=== PATIENT | female | born 1980 | race Caucasian/White ===

== ENCOUNTER 2019-07-23 03:39 | Emergency (ER) | payer OTHER, SELFPAY ==
[2019-07-23 03:45] VITALS: BP 136/69; PULSE 84; RESP 18; TEMP 36.6; O2SAT 99
--- NOTE | 2019-07-23 04:02 | ED.ABDPAIN ---
HPI - Abdominal Pain General Chief Complaint: Abdominal Pain Stated Complaint: abd pain and nausea Time Seen by Provider: 07/23/19 03:53 Source: patient Mode of arrival: Ambulatory Limitations: no limitations History of Present Illness HPI narrative: 39-year-old woman with the history of Crohn's disease currently on Remicade and followed by GI specialist at the [facility] presents with a week and a half of nausea with abdominal pain for periumbilical but involving the entire abdomen coming in waves and getting progressively worse over the last week and half. She states that she has not actually had any emesis has not had a significant change to her bowel movements and is still passing gas. She does have a history of an intra-abdominal abscess as well as a partial small-bowel obstruction. No fevers or chills. She presents today because the nausea is getting progressively worse despite taking Zofran after work this evening. She has shifted to a later work shift and initially she thought that was the problem. She has an IUD in place and recently had a negative test as well Related Data Allergies Allergy/AdvReac Type Severity Reaction Status Date / Time No Known Drug Allergies Allergy Verified 07/23/19 04:41 Review of Systems Review of Systems Narrative: Denies ? fever ? cough ? cold ? chills ? chest pain ? dyspnea ? orthopnea ? wheezing ? skin changes ? rashes Patient History Medical History Crohn's disease (Acute) Intra-abdominal abscess (Acute) IUD (intrauterine device) in place (Acute) Surgical History (Updated 07/23/19 @ 04:05 by Jamee Mendoza MD) Hx of appendectomy (Acute) Social History Smoking Status: Never smoker Smoking Status: Never smoker alcohol intake frequency: a few times a month Substance Use Type: does not use Exam Narrative Exam Narrative: General: Healthy appearing, in no acute distress. Able to give a complete and coherent history. Well-nourished well-developed HEENT: Moist mucous membranes, normal sclera with reactive pupils, Neck: No JVD, supple Respiratory: Lungs are clear to auscultation, no wheezing no rales no rhonchi. Full and symmetrical air movement Cardiac: Regular rate and rhythm no murmurs no bruits Abdomen: Soft, moderately tender through the entire abdomen without rebound or guarding, question of a mass or increase fullness in the right lower quadrant verses deeper guarding. Hypoactive bowel tones with some rushes and tinkles appreciated centrally. No flank pain Skin: Warm and dry, no rashes Neurologic: Grossly neurologically intact with no obvious asymmetries or abnormalities Extremities: No trauma, well perfused Psych: Cooperative, appropriate insight and affect Initial Vital Signs Initial Vital Signs: Vital Signs Temperature 97.9 F 07/23/19 03:45 Pulse Rate 84 07/23/19 03:45 Respiratory Rate 18 07/23/19 03:45 Blood Pressure 136/69 07/23/19 03:45 Pulse Oximetry 99 07/23/19 03:45 Course Orders Ordered: ED Orders 07/23/19 03:50 Complete Blood Count AUTO DIFF Stat Comprehensive Metabolic Panel Stat Lipase Stat 07/23/19 04:07 XR abdomen 1V Stat 07/23/19 04:26 Urinalysis and Microscopic Stat Sodium Chloride (Normal Saline 0.9%) 1,000 mls @ 1,000 mls/hr IV BOLUS ONE Stop: 07/23/19 05:05 Last Admin: 07/23/19 04:21 Dose: 1,000 mls/hr Documented by: CHRISTOS Discontinued Medications Ketorolac Tromethamine (Toradol) 15 mg IV NOW ONE Stop: 07/23/19 04:07 Last Admin: 07/23/19 04:20 Dose: 15 mg Documented by: CHRISTOS Magnesium Citrate (Magnesium Citrate) 150 ml PO NOW ONE Stop: 07/23/19 04:39 Ondansetron HCl (Zofran) 4 mg IV NOW ONE Stop: 07/23/19 04:07 Last Admin: 07/23/19 04:21 Dose: 4 mg Documented by: CHRISTOS Vital Signs Vital signs: Vital Signs - 8 hr 07/23/19 03:45 Temperature 97.9 F Pulse Rate 84 Respiratory Rate 18 Blood Pressure 136/69 Pulse Oximetry 99 MDM - Abdominal Pain Medical Records Attestation: I reviewed the patient's medical records. Lab Data Attestation: I reviewed the patient's lab results. Result diagrams: 07/23/19 03:50 07/23/19 03:50 Labs: Lab Results 07/23/19 07/23/19 Range/Units 03:50 03:50 WBC 13.1 H (4.5-11.0) X10^3/uL RBC 4.19 (4.0-5.2) X10^6/uL Hgb 13.1 (12.0-16.0) g/dL Hct 39.6 (36-46) % MCV 94.5 (80-100) fL MCH 31.3 (26-34) PG MCHC 33.2 (30-36) % RDW 13.4 (11.6-14.8) % Plt Count 355 (150-400) X10^3/uL Neut % (Auto) 65.9 (50-75) % Lymph % (Auto) 16.2 L (25-40) % [place] % (Auto) 4.7 (3-14) % Eos % (Auto) 12.2 H (2-4) % Baso % (Auto) 1.0 (0-2) % Neut # (Auto) 8600 H (7921-4744) /uL Lymph # (Auto) 2100 (5347-4902) /uL [place] # (Auto) 600 (0-900) /uL Eos # (Auto) 1600 H (0-450) /uL Baso # (Auto) 100 (0-100) /uL Sodium 137 (137-145) mmol/L Potassium 3.5 (3.4-5.1) mmol/L Chloride 105 (98-107) mmol/L Carbon Dioxide 26 (22-32) mmol/L BUN 12 (7-17) mg/dL Creatinine 0.73 (0.52-1.04) mg/dL Estimated GFR > 60.0 (>60) mL/min BUN/Creatinine Ratio 16.4 (6-22) Glucose 108 H (70-100) mg/dL Calcium 9.1 (8.4-10.2) mg/dL Total Bilirubin 0.4 (0.2-1.3) mg/dL AST 26 (14-36) IU/L ALT 14 (<35) IU/L Alkaline Phosphatase 38 (38-126) U/L Total Protein 7.5 (6.3-8.2) g/dL Albumin 4.4 (3.5-5.0) g/dL Globulin 3.1 (1.7-4.1) g/dL Albumin/Globulin Ratio 1.4 (1.0-2.8) Lipase 219 (23-300) U/L Imaging Data Abdominal x-ray: Attestation: I personally reviewed and interpreted this imaging study as follows: My Impression: Benign-appearing x-ray with gas localized in the stomach and left upper quadrant without air-fluid levels. Large volume of stool throughout the entire colon. IUD in place MDM Narrative Medical decision making narrative: Labs are relatively unremarkable with the exception of slightly elevated white blood cell count. Abdominal film suggests significant constipation is the source of her increased pain and nausea. Will discharge her home with magnesium citrate to see if this alleviates the symptoms. If she is not improving, develops increasing pain or fever encouraged her to return for further evaluation. At this point she is safe for home discharge Discharge Plan Departure Patient Disposition: Home Clinical Impression: Crohn's disease Qualifiers: Gastrointestinal tract location: unspecified location Digestive disease complication type: unspecified complication Qualified Code(s): K50.919 - Crohn's disease, unspecified, with unspecified complications Abdominal pain Qualifiers: Abdominal location: generalized Qualified Code(s): R10.84 - Generalized abdominal pain Constipation Qualifiers: Constipation type: unspecified constipation type Qualified Code(s): K59.00 - Constipation, unspecified Instructions: DI for Constipation Activity Restrictions/Additional Instructions: Thank you for coming in today. Increasing abdominal pain and nausea in the setting of Crohn's disease is always concerning. Your abdominal x-ray does not suggest a small bowel obstruction and does suggest quite a bit of stool stool in her colon. At this time I think it is safe to discharge to home with a bottle of magnesium citrate to see if getting some of the stool to move through your colon relieved her symptoms. The x-ray will be over-read by radiology in the morning and if they disagree with my findings will contact you. If your developing fevers, increasing abdominal pain do not have much of a bowel movement after drinking the magnesium citrate or develop new symptoms that it would be very appropriate to return to the emergency department for further evaluation. The next appropriate step would be repeating blood work and ordering a CT scan of the abdomen. I hope you feel better. It was a pleasure to meet you tonight
--- NOTE | 2019-07-23 04:07 | DI.RAD.S_ITS ---
PROCEDURE: XR ABDOMEN 1V INDICATIONS: abdominal pain, possible partial small bowel obstruction TECHNIQUE: One view of the abdomen acquired. COMPARISON: None. FINDINGS: Surgical changes and devices: None. Bowel: Bowel gas pattern is normal. Soft tissues: No suspicious abdominal calcifications. Visualized solid organ contours appear normal in size. Bones: No suspicious bony lesions. IMPRESSION: Centrally positioned IUD over the mid pelvis, normal bowel gas pattern. No bowel obstruction suspected. Dictated by: Hosea Washington M.D. on 07/23/2019 at 8:47 Approved by: Hosea Washington M.D. on 07/23/2019 at 8:48
[2019-07-23 04:20] LABS: Add Manual Diff / Slide Review NO; Basophils Absolute Auto 100 /uL (0-100); Eosinophils Absolute Auto 1600 /uL (0-450); Eosinophils Percent Auto 12.2 % (2-4); Hematocrit 39.6 % (36-46); Hemoglobin 13.1 g/dL (12.0-16.0); Lymphocytes Absolute Auto 2100 /uL (1100-4500); Lymphocytes Percent Auto 16.2 % (25-40); Mean Corpuscular HGB Conc 33.2 % (30-36); Mean Corpuscular Hemoglobin 31.3 PG (26-34); Mean Corpuscular Volume 94.5 fL (80-100); Monocytes Absolute Auto 600 /uL (0-900); Monocytes Percent Auto 4.7 % (3-14); Neutrophils Absolute Auto 8600 /uL (1500-7000); Neutrophils Percent Auto 65.9 % (50-75); Platelet Count 355 X10^3/uL (150-400); Red Blood Cell Count 4.19 X10^6/uL (4.0-5.2); Red Cell Distribution Width 13.4 % (11.6-14.8); White Blood Cell Count 13.1 X10^3/uL (4.5-11.0)
[2019-07-23] MEDS: KETOROLAC 60 MG/2 ML VIAL 15 MG IV (04:20)
[2019-07-23] MEDS: SODIUM CHLORIDE 0.9% 1,000 ML 1000 ML IV (04:21)
[2019-07-23] MEDS: ONDANSETRON 4 MG/2 ML INJ IV (04:21)
[2019-07-23 04:26] LABS: Alanine Aminotransferase 14 IU/L (<35); Albumin 4.4 g/dL (3.5-5.0); Albumin Globulin Ratio 1.4 (1.0-2.8); Alkaline Phosphatase 38 U/L (38-126); Aspartate Aminotransferase 26 IU/L (14-36); BUN Creatinine Ratio 16.4 (6-22); Bilirubin Total 0.4 mg/dL (0.2-1.3); Blood Urea Nitrogen 12 mg/dL (7-17); Calcium 9.1 mg/dL (8.4-10.2); Carbon Dioxide 26 mmol/L (22-32); Chloride 105 mmol/L (98-107); Estimated Glomerular Filt Rate > 60.0 mL/min (>60); Globulin 3.1 g/dL (1.7-4.1); Glucose 108 mg/dL (70-100); HEMOLYSIS 19 (0-50); Lipase 219 U/L (23-300); Potassium 3.5 mmol/L (3.4-5.1); Sodium 137 mmol/L (137-145); Total Protein 7.5 g/dL (6.3-8.2)
[2019-07-23 04:45] VITALS: BP 136/68; PULSE 79; RESP 15; O2SAT 100
[2019-07-23] MEDS: MAGNESIUM CITRATE 300 ML SOLUTION 150 ML PO (04:45)
== END 2019-07-23 04:45 | disposition home or self-care (01) ==
PROVIDERS: Emergency Provider Emergency Medicine
DX: K50.919 Crohn's disease, unspecified, with unspecified complications (principal); R10.84 Generalized abdominal pain; K59.00 Constipation, unspecified; D72.829 Elevated white blood cell count, unspecified
CPT/HCPCS: 36415; 74018; 80053; 83690; 85025; 96374; 96375; 99284; J1885; J2405